=== PATIENT | male | born 1970 | race African-American/Black ===

== ENCOUNTER 2021-05-20 21:54 | Emergency (ER) | payer BC ==
[~2021-05-20] VITALS: Ht 170.2 cm; Wt 93.0 kg
[2021-05-20 23:41] VITALS: BP 173/119
[2021-05-21] MEDS ORDERED: ONDA4TAB5 PO (00:21)
[2021-05-21] MEDS ORDERED: HYDR-4209 PO (00:21)
[2021-05-21] MEDS ORDERED: CYCL10TA9 PO (00:21)
--- NOTE | 2021-05-21 00:25 | NUR ---
Patient discharged to home in stable condition. Written and verbal after care instructions given. Patient verbalizes understanding of instruction. PT ambulatory with a steady gait
== END 2021-05-21 00:25 | disposition home or self-care (01) ==
LOC: ER 21:54
DX: S16.1XXA Strain of muscle, fascia and tendon at neck level, initial encounter (principal); S39.012A Strain of muscle, fascia and tendon of lower back, initial encounter; M25.511 Pain in right shoulder; I10 Essential (primary) hypertension; Z79.899 Other long term (current) drug therapy; V49.69XA Unspecified car occupant injured in collision with other motor vehicles in traffic accident, initial encounter; Y93.89 Activity, other specified; Y92.413 State road as the place of occurrence of the external cause; Y99.8 Other external cause status